=== PATIENT | male | born 1950 | race Caucasian/White ===

== ENCOUNTER → 2023-02-10 15:49 | Outpatient (CLI) | payer MEDICARE, SELFPAY ==
--- NOTE | ~2023-02-10 | XR_ITS ---
XR lumbar spine min 4V DATE: 02/10/2023 16:36 INDICATION: Low back and bilateral knee pain. No injury. TECHNIQUE: AP, lateral, coned lateral lumbosacral and bilateral oblique views COMPARISON: None FINDINGS: The included lower thoracic and lumbar pedicles are intact. No fracture or bone destruction is evident. Degenerative spurring in the lower thoracic spine. There is slight retrolisthesis at L3-4, likely due to mild degenerative disc disease. There is degenerative change at the apophyseal joints, most severely the right at L4-5 and L5-S1. The re is associated grade 1 anterolisthesis at L4-5. There is severe degenerative disc disease at L5-S1, moderate degenerative disc disease at L4-5. No spondylolysis. The sacroiliac joints are intact. IMPRESSION: Degenerative changes of the lower thoracic and lumbar spine Reviewed, dictated and finalized at location B.
--- NOTE | ~2023-02-10 | XR_ITS ---
XR knee LT min 4V DATE: 02/10/2023 16:36 INDICATION: Bilateral knee pain and low back pain. No injury. TECHNIQUE: [place] and standing AP, PA and lateral views COMPARISON: None FINDINGS: There is patellar enthesopathy at quadriceps tendon insertion site. Mild periarticular spurring at the patellofemoral and lateral compartments. There is severe loss of medial compartment joint space with [id number]. No fracture or dislocation or significant joint effusion is evident. No radiopaque intra-articular lo ose body or chondrocalcinosis is detected. No periosteal reaction or bone destruction. 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 IMPRESSION: Tricompartment osteoarthritis, particularly severe at the medial co mpartment
--- NOTE | ~2023-02-10 | XR_ITS ---
XR knee RT min 4V DATE: 02/10/2023 16:36 INDICATION: Bilateral knee pain, low back pain. No injury. TECHNIQUE: [place] and standing AP, PA and lateral views COMPARISON: None FINDINGS: There is patellar enthesopathy at the quadriceps and patellar tendon insertion sites. There is moderate periarticular spurring at the patellofemoral joint. There is moderately severe loss of joint space height at the medial compartment. There is mild periar ticular spurring at the medial and lateral compartments. No fracture or dislocation or joint effusion, radiopaque intra-articular loose body or chondrocalcino sis is noted. No periosteal reaction or bone destruction. IMPRESSION: Tricompartment osteoarthritis, most severe at the medial compartment Reviewed, dictated and finalized at location B. IMPRESSION: Tricompartment osteoarthritis, most severe at the medial compartmen t
== END ==
PROVIDERS: PCP Family Medicine; Visit Provider Family Medicine
DX: M17.0 Bilateral primary osteoarthritis of knee (principal); M51.35 Other intervertebral disc degeneration, thoracolumbar region
CPT/HCPCS: 72110; 73564

== ENCOUNTER 2024-02-09 08:24 | Outpatient (CLI) | payer MEDICARE, SELFPAY ==
[2024-02-09 13:31] LABS: Hematocrit 44.2 % (42.0-52.0); Hemoglobin 14.8 g/dL (14.0-18.0); Mean Corpuscular HGB Conc 33.5 g/dl (32-36); Mean Corpuscular Hemoglobin 32.5 pg (26-34); Mean Corpuscular Volume 97.1 fl (80-100); Mean Platelet Volume 9.8 fl (7.4-10.4); Platelet Count Result 222 k/mm3 (150-375); Red Blood Count 4.55 M/mm3 (4.6-6.20); Red Cell Distribution Width 12.6 % (11.5-14.5); White Blood Count 5.5 K/mm3 (4.5-10.0)
[2024-02-09 13:37] LABS: Alanine Aminotransferase 21 U/L (6-50); Alkaline Phosphatase 92 U/L (38-126); Anion Gap 8 mmol/L (4-12); Aspartate Amino Transferase 38 U/L (17-59); Bilirubin,Total 0.4 mg/dL (0.2-1.3); Blood Urea Nitrogen 21 mg/dL (9-20); Carbon Dioxide 24 mmol/L (22-30); Chloride 105 mmol/L (98-107); Cholesterol 133 mg/dL (0-200); Estimated Glomerular Filt Rate 50; Glucose 96 mg/dL (65-110); HDL Direct 39 mg/dL; Potassium 3.9 mmol/L (3.4-5.0); Sodium 137 mmol/L (137-145); Triglycerides 80 mg/dL (<150)
[2024-02-09 13:49] LABS: LDL Cholesterol Direct 62 mg/dL
[2024-02-09 14:24] LABS: Hemoglobin A1C 5.5 % (<5.7)
== END 2024-02-09 08:25 | disposition home or self-care (01) ==
PROVIDERS: PCP Family Medicine; Visit Provider Family Medicine
DX: I12.9 Hypertensive chronic kidney disease with stage 1 through stage 4 chronic kidney disease, or unspecified chronic kidney disease (principal); N18.9 Chronic kidney disease, unspecified; E66.9 Obesity, unspecified; R73.03 Prediabetes; E78.2 Mixed hyperlipidemia
CPT/HCPCS: 36415; 80053; 80061; 83036; 84443; 85027

== ENCOUNTER 2024-11-15 08:28 | Outpatient (CLI) | payer MEDICARE, SELFPAY ==
--- OUTSIDE RECORDS SUMMARY | 2024-11-15 08:44 | XMS_ITS | Clinical Summary ---
Author Organization [facility] Office Center Address [address] [place] [address] Care Team Providers Care Drug Room Clerk Name Role Phone Angel Molina MD Unavailable [phone] Tamara Severino DO Primary Care Provider [phone] Allergies No known active allergies Medications citalopram (CeleXA) 10 mg tablet Take 1 tablet (10 mg total) by mouth daily 9 Active traZODone (DESYREL) 50 mg tablet Take 1 tablet (50 mg total) by mouth daily 9 Active atorvastatin (LIPITOR) 10 mg tablet Take 1 tablet (10 mg total) by mouth daily 9 Active losartan (COZAAR) 100 mg tablet TAKE 1 TABLET BY MOUTH EVERY DAY 90 tablet 2 2 Active carvediloL (COREG) 12.5 mg tablet TAKE ONE TABLET BY MOUTH TWICE A DAY WITH MEALS 180 tablet 1 2 Active NIFEdipine (NIFEdipine CC) 90 mg 24 hr tablet TAKE 1 TABLET BY MOUTH DAILY 90 tablet 2 5 Active doxazosin (CARDURA) 2 mg tablet TAKE 1 TABLET BY MOUTH EVERY DAY NIGHTLY 90 tablet 1 5 Active doxazosin (CARDURA) 2 mg tablet TAKE 1 TABLET BY MOUTH EVERY DAY NIGHTLY 90 tablet 1 4 10/23/19 25 Discontinued Active Problems Problem Noted Date Diagnosed Date Primary hypertension 09/09/2022 Mixed hyperlipidemia 08/17/2021 Abnormal EKG 11/01/2015 Hypertension 06/09/2015 Resolved Problems Problem Noted Date Diagnosed Date Resolved Date Dyslipidemia 11/01/2015 08/17/2021 Surgical History Surgery Date Site/Laterality Comments TOTAL SHOULDER REPLACEMENT 04/13/2019 Left shoulder Medical History Medical History Date Comments HTN (hypertension) Dyslipidemia Abnormal EKG Obesity Hyperlipidemia Family History Medical History Relation Name Comments Hyperlipidemia Mother Hypertension Mother Relation Name Status Comments Mother Alive Social History Tobacco Use Types Packs/Day Years Used Date Smoking Tobacco: Never Smokeless Tobacco: Never Tobacco Cessation:Counseling Given: Not Answered Sex and Gender Information Value Date Recorded Sex Assigned at Not on file Legal Sex Male 8:54 PM FOLDER TIER Gender Identity Not on file Sexual Orientation Not on file Obstetrics History Last Filed Vital Signs Vital Sign Reading Time Taken Comments Blood Pressure 118/62 06/23/2024 12:09 PM FOLDER TIER Pulse 58 06/23/2024 12:09 PM FOLDER TIER Temperature 36.3 C (97.3 F) 08/17/2021 1:46 PM CDT Respiratory Rate - - Oxygen Saturation 94% 06/23/2024 12:09 PM FOLDER TIER Inhaled Oxygen Concentration - - Weight 89.4 kg (197 lb) 06/23/2024 12:09 PM FOLDER TIER Height 162.6 cm (5' 4.02) 08/25/2023 4:58 PM CD T Body Mass Index 33.79 08/25/2023 4:58 PM CDT Plan of Treatment Health Maintenance Due Date Last Done Comments Colon Cancer Screening-Colonoscopy 1950 Depression Screening 1950 Fall Risk Assessment 1950 Hepatitis C Screening 1950 DTaP/Tdap/Td Vaccine (1 - Tdap) 12/21/1963 Hepatitis B Screening 1970 Zoster Vaccine (1 of 2) 2002 Well Visit 65+ 2017 Pneumococcal vaccine 65+ (2 of 2 - PPSV23) 09/28/2020 08/03/2020 Influenza Vaccine (Season Ended) 2025 Prostate Cancer Screening-PSA Discontinued 02/21/2022 Procedures Procedure Name Priority Date/Time Associated Diagnosis Comments PSA SCREEN Routine 02/21/2022 12:00 AM CDT from Last 3 Months or Most Recently Relevant to Health Maintenance Results * PSA screen (02/21/2022 12:00 AM CDT) PSA 2.6 0.0 - 4.0 ng/mL [facility] - 01 Comment: Steve ECLIA methodology. According to the [employer] [employer], Serum PSA should decrease and remain at undetectable levels after radical prostatectomy. The AUA defines biochemical recurrence as an initial PSA value 0.2 ng/mL or greater followed by a subsequent confirmatory PSA value 0.2 ng/mL or greater. Values obtained with different assay methods or kits cannot be used interchangeably. Results cannot be interpreted as absolute evidence of the presence or absence of malignant disease. 02/21/2022 02/21/2022 Narrative [facility] - 02/22/2022 4:10 PM CDT Performed at: [address] [id number] Tower Truck Driver: Scooter Ibanez PhD, Phone: [phone] Angel Molina MD LAB BLOOD ORDERABLES Final Result [facility] - 01 from Last 3 Months or Most Recently Relevant to Health Maintenance Insurance MEDICARE MEDICARE [facility] MEDICARE SUPPLEMENT Care Teams Drug Room Clerk Relationship Specialty Start Date End Date Tamara Severino DO [address] [place] [address] [address] PCP - General Family Medicine 02/14/20 Angel Molina MD [address] [place] [address] [address] Consulting Physician Cardiology 01/10/20
--- OUTSIDE RECORDS SUMMARY | 2024-11-15 08:44 | XMS_ITS | Clinical Summary ---
Author Organization [facility] Address [facility] [place] [address] Care Team Providers Care Color Control Operator Name Role Phone Jesse Lopez MD, Ortiz Unavailable [phone] Tamara Severino DO Primary Care Provider [phone] Allergies No known active allergies Medications trazodone 50 MG tablet Take 1 tablet (50 mg total) by mouth nightly at bedtime. 9 Active NIFEdipine ER 90 MG 24 hr tablet Take 1 tablet (90 mg total) by mouth nightly. 3 9 Active losartan 100 MG tablet Take 1 tablet (100 mg total) by mouth daily. 9 Active citalopram 10 MG tablet Take 1 tablet (10 mg total) by mouth nightly. 9 Active carvedilol 12.5 MG tablet Take 0.5 tablets (6.25 mg total) by mouth 2 (two) times daily. 9 Active atorvastatin 10 MG tablet 1 tablet (10 mg total) nightly at bedtime. 9 Active terbinafine 1 % cream Apply 1 Application topically as needed. 1 9 Active nystatin (MYCOSTATIN) powder 2 Active doxazosin (CARDURA) 2 MG tablet TAKE 1 TABLET BY MOUTH EVERY DAY NIGHTLY 2 Active traMADol (ULTRAM) 50 MG tabletIndication s:Acute Pain < 7 Day Supply Take 1 tablet (50 mg total) by mouth every 6 (six) hours as needed for Pain. Indications: Acute Pain < 7 Day Supply 20 tablet 3 Active Additional Information Patient not taking.Reported on 09/14/2024 traMADol (ULTRAM) 50 MG tabletIndication s:Acute Pain < 7 Day Supply Take 1 tablet (50 mg total) by mouth every 6 (six) hours as needed for Pain. Indications: Acute Pain < 7 Day Supply 20 tablet 3 Active Additional Information Patient not taking.Reported on 09/14/2024 ibuprofen (MOTRIN) 800 MG tabletIndication s:Pain of left shoulder after shoulder replacement TAKE 1 TABLET BY MOUTH EVERY 8 HOURS NEEDED FOR PAIN 90 tablet 4 Active Active Problems Problem Noted Date Diagnosed Date Pain of left shoulder after shoulder replacement 02/19/2024 Mixed hyperlipidemia 08/17/2021 Positive colorectal cancer screening using Colog uard test 09/06/2020 Overview (09/06/2020): Added automatically from request for surgery [id number] Primary osteoarthritis of right shoulder 020 S/P shoulder replacement, left 04/14/2019 Osteoarthritis of left shoulder 04/14/2019 Osteoarthritis of left acromioclavicular joint 1 05/25/2018 Impingement syndrome of left shoulder 03/25/2019 Asthma (HHS/HCC) 11/04/2016 H/O elbow surgery 11/07/2015 Abnormal EKG 11/01/2015 Dyslipidemia 11/01/2015 Primary osteoarthritis of left shoulder 07/04/19 16 Shoulder pain 06/26/2015 Hypertension 06/09/2015 Anxiety 06/09/2015 Resolved Problems Problem Noted Date Diagnosed Date Resolved Date Encounter for preventive health examination 06/09/2015 01/21/2020 Encounters Date Type Department Care Team Description 09/14/2024 3:40 PM CDT Office Visit [facility] [address] [place] [address] Donald Hill MD Follow Up (Right shoulder) 09/14/2024 Scan HEALTH INFO SRVCS Scanned, Doc [facility] 09/14/2024 Travel 09/07/2024 3:40 PM CDT Office Visit [facility] [address] [place] [address] Donald Hill MD Follow Up (Right shoulder) 09/07/2024 Scan MG HEALTH INFO SRVCS Scanned, Doc [facility] 09/07/2024 Travel 08/31/2024 4:00 PM CDT Office Visit [facility] [address] [place] [address] Donald Hill MD Follow Up (Right shoulder) 08/31/2024 Scan MG HEALTH INFO SRVCS Scanned, Doc [facility] 08/31/2024 Travel 08/25/2024 Orders Only [facility] [address] [place] [address] Donald Hill MD from Last 3 Months Immunizations Immunization Administration Dates Next Due Pneumococcal (Prevnar 13) 08/03/2020 Family History Medical History Relation Comments Alcohol Abuse Brother 1 Alcohol Abuse Brother 2 Heart Disease Father Hypertension Mother Relation Status Comments Brother 1 (Age 65) alcoholism Brother 2 (Age 68) alcoholism Father (Age 90) Mother Alive Sister 1 Alive Sister 2 Alive Son 1 Alive Son 2 Alive Social History Tobacco Use Types Packs/Day Years Used Date Smoking Tobacco: Never Passive Smoke Exposure: Never Smokeless Tobacco: Never Tobacco Cessation:Counseling Given: No Comments:na Alcohol Use Standard Drinks/Week Comments No 0 (1 standard drink = 0.6 oz pur e alcohol) AUDIT-C Answer Date Recorded Frequency of Alcohol Consumption Never 10/15/2018 Average Number of Drinks Not on file 019 Frequency of Binge Drinking Not on file 10/2018 PHQ-2 Answer Date Recorded Patient Health Questionnaire-2 Score 2 08/31/2024 Sex and Gender Information Value Date Recorded Sex Assigned at Not on file Legal Sex Male 10:56 AM CDT Gender Identity Not on file Sexual Orientation Not on file Last Filed Vital Signs Vital Sign Reading Time Taken Comments Blood Pressure 126/71 09/14/2024 3:34 PM CDT Pulse 61 09/14/2024 3:34 PM CDT Temperature 37.3 C (99.1 F) 09/14/2024 3:34 PM CDT Respiratory Rate 13 06/25/2022 9:35 AM [employer]TER Oxygen Saturation 98% 08/12/2023 3:47 PM CDT Inhaled Oxygen Concentration - - Weight 89.1 kg (196 lb 6.4 oz) 09/14/2024 3:34 P M CDT Height 167.6 cm (5' 6) 08/05/2023 3:35 PM CDT Body Mass Index 31.7 08/05/2023 3:35 PM CDT Plan of Treatment Health Maintenance Due Date Last Done Comments Hepatitis C 1970 DTaP, Tdap and Td Vaccines ( 1 - Tdap) 12/21/1971 Zoster Vaccines (1 of 2) 2002 RSV Immunization or 60+ Years (1 - Risk 60-74 years 1-dose series) 2012 Annual Medicare Wellness Visit 2017 Pneumococcal Vaccine: 50+ Years (2 of 2 - PPSV23) 09/28/2020 08/03/2020 COVID-19 Vaccine (3 - 2023-2 5 season) 2024 07/11/2020, 06/13/2020 Colorectal Cancer Screening Colonoscopy (10 Years) 09/15/2030 09/15/2020 Colorectal Cancer Screening FIT-DNA (3 Years) Discontinued 08/14/2020 PHQ-2 (Physician [place]) Completed 08/31/2024 Meningococcal B Vaccine Aged Out No l onger eligible based on patient's age to complete this topic Meningococcal Vaccine Aged Out No zoya amy eligible based on patient's age to complete this topic RSV Immunizations Under 20 Months Aged Out No longer eligible based on patient's age to complete this topic Medical Devices Implanted Type Area Wild Life Manager Device Identifier Shelf Expiration Date Model / Serial / Lot Cement Bone Tobramycin Simplex - [id number] Implanted:Qty : 1 on 04/14/2019 by Donald Hill MD at [facility] Cement Implant Left: Shoulder [employer] 02/13/2020 [id number] 01 / / [id number] Cement Full Dose - [id number] Implanted:Qty : [facility] Implant Left: Shoulder [employer] 02/08/2021 6191-1-0 01 / / [id number] Fibertape Tendon Compression Bridge Kit Implanted:Qty : 1 on 04/14/2019 by Donald Hill MD at [facility] Shoulder Components Left: Shoulder [employer] [id number] 09/09/2023 [id number] / / [id number] Aequalis Perform Keeled Glenoid Implanted:Qty : 1 on 04/14/2019 by Donald Hill MD at [facility] Shoulder Components Left: Shoulder [employer] 01/22/2024 [id number] / [id number] / Flex Shoulder System Implanted:Qty : 1 on 04/14/2019 by Donald Hill MD at [facility] Shoulder Components Left: Shoulder [employer] [id number] 02/17/2023 [id number] / / [id number] Aequalis Ascend Flexs Tandard Ptc Humeral Stem Implanted:Qty : 1 on 04/14/2019 by Donald Hill MD at [facility] Shoulder Components Left: Shoulder [employer] [id number] 09/11/2022 [id number] / / [id number] Procedures Procedure Name Priority Date/Time Associated Diagnosis Comments OXR RT SHOULDER 3V Routine 08/31/2024 3: 53 PM CDT Primary osteoarthritis of right shoulder COLOGUARD (SCAN ORDER) Routine 08/14/2020 from Last 3 Months or Most Recently Relevant to Health Maintenance Results * OXR RT SHOULDER 3V (08/31/2024 3:53 PM CDT) Anatomical Region Laterality Modality Radiographic Bridget ging Narrative 08/31/2024 4:27 PM CDT PROCEDURE: OXR RT SHOULDER 3V VIEWS: 3 DATE: 08/31/24 COMPARISONS: None CLINICAL INDICATION: FINDINGS: Severe glenohumeral osteoarthritis, type I acromion, moderate acromioclavicular joint osteoarthritis. No acute findings. IMPRESSION: Severe shoulder arthritis. us Donald Hill MD GENERAL IMAGING Final Result * COLOGUARD (SCAN) (08/14/2020) COLOGUARD POSITIVE [facility] Stool specimen (specimen) 08/14/2020 us Documents Scanned SCANNING Final Result [facility] from Last 3 Months or Most Recently Relevant to Health Maintenance Insurance MEDICARE [facility] Advance Directives * Full Code (Latest Code Status on File) Date Activated Date Inactivated Comments 04/14/2019 1:13 PM 04/15/2019 12:36 PM Care Teams Color Control Operator Relationship Specialty Start Date End Date Tamara Severino DO [address] [place] [address] PCP - General FAMILY PRACTICE 01/04/20 Angel Molina MD [address] [place] [address] INTERNAL MEDICINE 03/25/19
--- OUTSIDE RECORDS SUMMARY | 2024-11-15 08:44 | XMS_ITS | Encounter Summary ---
Author Organization [facility] System Address [facility] [place] [address] Care Team Providers Care Truck Engine Assembler Name Role Phone Jesse Lopez MD, Ortiz Unavailable [phone] Tamara Severino DO Primary Care Provider [phone] Encounter Details Date Type Department Care Team (Late st Contact Info) Description 09/08/2020 Prep for Procedure [facility] [address] [place], [place] [id number] Song Herrera MD [address] [address] Social History Tobacco Use Types Packs/Day Years Used Date Smoking Tobacco: Never Smokeless Tobacco: Never Alcohol Use Standard Drinks/Week Comments No 0 (1 standard drink = 0.6 oz pur e alcohol) AUDIT-C Answer Date Recorded Frequency of Alcohol Consumption Never 10/15/2018 Average Number of Drinks Not on file 019 Frequency of Binge Drinking Not on file 10/2018 Sex and Gender Information Value Date Recorded Sex Assigned at Not on file Legal Sex Male 10:56 AM CDT Gender Identity Not on file Sexual Orientation Not on file documented as of this encounter Functional Status * RETIRED Are you deaf or do you have serious difficulty hearing Answer Date of Assessment Author Status No 04/14/2019 1:05 PM TERRAZZO LAYER Activ e * RETIRED Are you blind or do you have serious difficulty seeing, even when wearing glasses? Answer Date of Assessment Author Status No 04/14/2019 1:05 PM TERRAZZO LAYER Activ e * Do you have serious difficulty walking or climbing stairs? Answer Date of Assessment Author Status No 04/14/2019 1:05 PM Selin Gomez RN Active * Do you have difficulty dressing or bathing? Answer Date of Assessment Author Status No 04/14/2019 1:05 PM Selin Gomez RN Active * Because of a physical, mental, or emotional condition, do you have difficulty doing errands alone such as visiting a doctor's office or shopping? Answer Date of Assessment Author Status No 04/14/2019 1:05 PM Selin Gomez RN Active documented as of this encounter Mental Status * Because of a physical, mental, or emotional condition, do you have serious difficulty concentrating, remembering, or making decisions? Answer Entry Date Author Status No 04/14/2019 1:05 PM Selin Gomez RN Active documented in this encounter Plan of Treatment Not on file documented as of this encounter Results * ECG 12-Lead (09/12/2020 8:02 AM CDT) 09/12/2020 8:02 AM CDT Narrative [facility] RAD - 09/12/2020 7:32 PM CDT [facility] Test Date: 2020-09-12 Pat Name: ALEC DELUNA Department: Room: Gender: Male Tailings Worker: : 1950 Requested By: SONG HERRERA Order Number: [id number] Reading MD: Ben Farr Measurements Intervals [place] Rate: 50 P: 8 [place]: 154 QRS: -16 QRSD: 133 T: -20 QT: 452 QTc: 416 Interpretive Statements SINUS BRADYCARDIA INTRAVENTRICULAR CONDUCTION DELAY [130+ ms QRS DURATION] MODERATE VOLTAGE CRITERIA FOR LVH, CONSIDER NORMAL VARIANT [MEETS CRITERIA IN ONE OF: R(aVL), S(V1), R(V5), R(V5/V6)+S(V1)] POSSIBLE LATERAL MYOCARDIAL INFARCTION , OF INDETERMINATE AGE [30 ms Q WAVE IN I/aVL/V5/V6] Compared to ECG 03/25/2019 12:06:58 Intraventricular conduction delay now present T-wave abnormality no longer present Possible ischemia no longer present Myocardial infarct finding still present Procedure Note Ben Farr MD - 09/12/2020 [facility] Test Date: 2020-09-12 Pat Name: ALEC DELUNA Department: Room: Gender: Male Tailings Worker: : 1950 Requested By: SONG HERRERA Order Number: [id number] Reading MD: Ben Farr Measurements Intervals [place] Rate: 50 P: 8 [place]: 154 QRS: -16 QRSD: 133 T: -20 QT: 452 QTc: 416 Interpretive Statements SINUS BRADYCARDIA INTRAVENTRICULAR CONDUCTION DELAY [130+ ms QRS DURATION] MODERATE VOLTAGE CRITERIA FOR LVH, CONSIDER NORMAL VARIANT [MEETSCRITERIA IN ONE OF: R(aVL), S(V1), R(V5), R(V5/V6)+S(V1)] POSSIBLE LATERAL MYOCARDIAL INFARCTION , OF INDETERMINATE AGE [30 ms QWAVE IN I/aVL/V5/V6] Compared to ECG 03/25/2019 12:06:58 Intraventricular conduction delay now present T-wave abnormality no longer present Possible ischemia no longer present Myocardial infarct finding still present us Song Herrera MD ECG ORDERABLES Final Result [facility] RAD * PRE-SURGICAL/PRE-PROCEDURE CORONAVIRUS (COVID 19) (09/12/2020 7:48 AM CDT) CORONAVIRUS SARS COV 2 PCR (RESP) NOT DETECTED NOT DETECTED 09/14/2020 5:41 PM CDT [facility] Comment: A Not Detected (negative) test result for this test means that SARS- CoV-2 RNA was not present in the specimen above the limit of detection. A negative result does not rule out the possibility of COVID-19 and should not be used as the sole basis for treatment or patient management decisions. If COVID-19 is still suspected, based on exposure history together with other clinical findings, re-testing should be considered in consultation with public health authorities. Laboratory test results should always be considered in the context of clinical observations and epidemiological data in making a final diagnosis and patient management decisions. Please review the Fact Sheets and FDA authorized labeling available for health care providers and patients using the following websites: https://www.[employer].BugBuster/home/Covid-19/HCP/QuestIVD/fact- sheet.html https://www.[employer].BugBuster/home/Covid-19/Patients/ QuestIVD/fact-sheet.html This test has been authorized by the FDA under an Emergency Use Authorization (EUA) for use by authorized laboratories. Due to the current public health emergency, [facility] is receiving a high volume of samples from a wide variety of swabs and media for COVID-19 testing. In order to serve patients during this public health crisis, samples from appropriate clinical sources are being tested. Negative test results derived from specimens received in non-commercially manufactured viral collection and transport media, or in media and sample collection kits not yet authorized by FDA for COVID-19 testing should be cautiously evaluated and the patient potentially subjected to extra precautions such as additional clinical monitoring, including collection of an additional specimen. Methodology: Nucleic Acid Amplification Test (NAAT) includes RT-PCR or TMA Additional information about COVID-19 can be found at the [facility] website: www.[employer].BugBuster/Covid19. Test performed at [facility] [place] [address] [place] [id number] Director: ABAD SAMUELS DO,MPH FIRST TEST NO 09/12/2020 7:41 AM CDT [facility] EMPLOYED IN HEALTHCARE NO 09/12/2020 7:41 AM CDT [facility] SYMPTOMATIC DEFINED BY CDC NO 09/12/2020 7:41 AM CDT [facility] DATE OF SYMPTOM ONSET UNKNOWN 09/12/2020 8:01 AM CDT [facility] HOSPITALIZATION STATUS NO 09/12/2020 7:41 AM CDT [facility] PATIENT IN ICU NO 09/12/2020 7:41 AM CDT [facility] RESIDENT OF CONGREGATE CARE NO 09/12/2020 7:41 AM CDT [facility] UNKNOWN 09/12/2020 8:01 AM CDT [facility] PATIENT'S RACE WHITE OR 09/12/2020 7:41 AM CDT [facility] ETHNICITY NONHISPANIC 09/12/2020 7:41 AM CDT [facility] SOURCE (QST) NASOPHARYNGEAL SWAB 09/12/2020 7:41 AM CDT [facility] NASOPHARYNGEAL SWAB / Unknown 09/12/2020 7:48 AM CDT us Song Herrera MD MICROBIOLOGY - GENERAL ORDERABLE S Final Result [facility] [address] [place] [address], [facility] [address] [place] [address], documented in this encounter Visit Diagnoses Diagnosis Preop testing- Primary Preoperative examination, unspecified Preop cardiovascular exam Pre-operative cardiovascular examination Preop cardiovascular exam Pre-operative cardiovascular examination documented in this encounter Additional Health Concerns Infection Onset Date Last Indicated Resolved Time COVID-19 Rule Out 09/12/2020 09/12/2020 09/14/2020 5:41 PM CDT documented as of this encounter Care Teams Truck Engine Assembler Relationship Specialty Start Date End Date Tamara Severino DO [address] [place] [address] PCP - General FAMILY PRACTICE 01/04/20 Angel Molina MD [address] [place] [address] INTERNAL MEDICINE 03/25/19 documented as of this encounter
--- OUTSIDE RECORDS SUMMARY | 2024-11-15 08:44 | XMS_ITS | Encounter Summary ---
Author Organization [facility] Address [facility] [place] [address] Care Team Providers Care Otr Flatbed Company Truck Driver Name Role Phone Jesse Lopez MD, Ortiz Unavailable [phone] Tamara Severino DO Primary Care Provider [phone] Encounter Details Date Type Department Care Team (Late st Contact Info) Description 11/06/2022 [place] Message Enc [facility] [address] [place], [place] [address] [facility] Provider Air Quality Message Social History Tobacco Use Types Packs/Day Years Used Date Smoking Tobacco: Never Smokeless Tobacco: Never Comments:na Alcohol Use Standard Drinks/Week Comments No 0 (1 standard drink = 0.6 oz pur e alcohol) AUDIT-C Answer Date Recorded Frequency of Alcohol Consumption Never 10/15/2018 Average Number of Drinks Not on file 019 Frequency of Binge Drinking Not on file 10/2018 PHQ-2 Answer Date Recorded Patient Health Questionnaire-2 Score 0 05/27/2022 Sex and Gender Information Value Date Recorded Sex Assigned at Not on file Legal Sex Male 10:56 AM CDT Gender Identity Not on file Sexual Orientation Not on file documented as of this encounter Functional Status * RETIRED Are you deaf or do you have serious difficulty hearing Answer Date of Assessment Author Status No 04/14/2019 1:05 PM VENDING SERVICE TECHNICIAN Activ e * RETIRED Are you blind or do you have serious difficulty seeing, even when wearing glasses? Answer Date of Assessment Author Status No 04/14/2019 1:05 PM VENDING SERVICE TECHNICIAN Activ e * Do you have serious [...] on file documented as of this encounter Visit Diagnoses Not on filedocumented in this encounter Care Teams Otr Flatbed Company Truck Driver Relationship Specialty Start Date End Date Tamara Severino DO [address] [place] [address] PCP - General FAMILY PRACTICE 01/04/20 Angel Molina MD [address] [facility] [place] [address] INTERNAL MEDICINE 03/25/19 documented as of this encounter
--- OUTSIDE RECORDS SUMMARY | 2024-11-15 08:44 | XMS_ITS | Referral Summary ---
Author Organization [facility] Address [address] [place] [address] Care Team Providers Care Catering Server Name Role Phone Angel Molina MD Unavailable [phone] Tamara Severino DO Primary Care Provider [phone] Allergies No known active allergies Medications citalopram [...] Diagnosed Date Resolved Date Dyslipidemia 11/01/2015 08/17/2021 Social History Tobacco Use Types Packs/Day Years Used Date Smoking Tobacco: Never Smokeless Tobacco: Never Tobacco Cessation:Counseling Given: Not Answered Sex and Gender Information Value Date Recorded Sex Assigned at Not on file Legal Sex Male 8:54 PM EDGE STAINER MACHINE Gender Identity Not on file Sexual Orientation Not on file Last Filed Vital Signs Vital Sign Reading Time Taken Comments Blood Pressure 118/62 06/23/2024 12:09 PM EDGE STAINER MACHINE Pulse 58 06/23/2024 12:09 PM EDGE STAINER MACHINE Temperature 36.3 C (97.3 F) 08/17/2021 1:46 PM CDT Respiratory Rate - - Oxygen Saturation 94% 06/23/2024 12:09 PM EDGE STAINER MACHINE Inhaled Oxygen Concentration - - Weight 89.4 kg (197 lb) 06/23/2024 12:09 PM EDGE STAINER MACHINE Height 162.6 cm (5' 4.02) 08/25/2023 4:58 PM CD T Body Mass Index 33.79 08/25/2023 4:58 PM CDT Plan of Treatment Not on file Procedures Procedure Name Priority Date/Time Associated Diagnosis Comments PSA SCREEN Routine 02/21/2022 12:00 AM CDT from Last 3 Months or Most Recently Relevant to Health Maintenance Results * PSA screen (02/21/2022 12:00 AM CDT) [facility] PSA 2.6 0.0 - 4.0 ng/mL [facility] - 01 Comment: Steve ECLIA methodology. According to the [place] [employer], Serum PSA should decrease and [...] - 02/22/2022 4:10 PM CDT Performed at: [address] [place] [id number] Paper Deliverer: Scooter Ibanez PhD, Phone: [phone] Angel Molina MD LAB BLOOD ORDERABLES Final Result [facility] - 01 from Last 3 Months or Most Recently Relevant to Health Maintenance Insurance MEDICARE MEDICARE [facility] MEDICARE SUPPLEMENT Care Teams Catering Server Relationship Specialty Start Date End Date [facility] cent[facility]alphTamara DO [address] [facility] [address] [place] [address] PCP - General Family Medicine 02/14/20 Angel Molina MD [address] [facility] [place] [address] Consulting Physician Cardiology 01/10/20
--- OUTSIDE RECORDS SUMMARY | 2024-11-15 08:44 | XMS_ITS | Encounter Summary ---
Author Organization [facility] Care Team Providers Care Fiber Product Cutting Machine Operator Name Role Phone No, Physician Primary Care Provider [phone] Robel Anderson MD Primary Care Provider [phone] Angel Molina MD Unavailable [phone] Tamara Severino DO Primary Care Provider [phone] Encounter Details Date Type Department Care Team (Latest Contact Info) Description 06/14/2014 Orders Only [facility] CLINCON[facility] ProviderJudah MD [address] [place] [address] Social History Tobacco Use Types Packs/Day Years Used Date Smoking Tobacco: Never Assessed Sex and Gender Information Value Date Recorded Sex Assigned at Not on file Legal Sex Male 8:54 PM L TACKER Gender Identity Not on file Sexual Orientation Not on file documented as of this encounter Plan of Treatment Not on file documented as of this encounter Procedures Procedure Name Priority Date/Time Associated Diagnosis Comments SCAN - LABS 11/01/2015 12:00 AM CDT documented in this encounter Results * SCAN - LABS (11/01/2015 12:00 AM CDT) Narrative 11/01/2015 12:00 AM CDT Ordered by an unspecified provider. Historical Provider Final Res ult documented in this encounter Visit Diagnoses Not on filedocumented in this encounter Care Teams Fiber Product Cutting Machine Operator Relationship Specialty Start Date End Date No, Physician PCP - General 08/05/18 02/16/19 Robel Anderson MD [address] [place] [address] PCP - General Family Medicine 02/17/19 02/13/20 Tamara Severino DO [address] [facility] [address] [place] [address] [address] PCP - General Family Medicine 02/14/20 Angel Molina MD [address] [facility] [address] [place] [address] [address] Consulting Physician Cardiology 01/10/20 documented as of this encounter
--- OUTSIDE RECORDS SUMMARY | 2024-11-15 08:44 | XMS_ITS | Encounter Summary ---
Author Organization [facility] Facility Care Team Providers Care Tile Trimmer Name Role Phone No, Physician Primary Care Provider [phone] Robel Anderson MD Primary Care Provider [phone] Angel Molina MD Unavailable [phone] Tamara Severino DO Primary Care Provider [phone] Encounter Details Date Type Department Care Team (Latest Contact Info) Description 10/31/2015 Orders Only [facility] CLINCONV ProviderJudah MD [address] [place] [address] Social History Tobacco Use Types Packs/Day Years Used Date Smoking Tobacco: Never Assessed Sex and Gender Information Value Date Recorded Sex Assigned at Not on file Legal Sex Male 8:54 PM BIODIESEL PRODUCTION ASSOCIATE Gender Identity Not on file Sexual Orientation Not on file documented as of this encounter Plan of Treatment Not on file documented as of this encounter Procedures Procedure Name Priority Date/Time Associated Diagnosis Comments SCAN - LABS 11/01/2015 12:00 AM CDT CARDIOLOGY REPORT 11/01/2015 12: 00 AM CDT documented in this encounter Results * SCAN - LABS (11/01/2015 12:00 AM CDT) Narrative 11/01/2015 12:00 AM CDT Ordered by an unspecified provider. Historical Provider Final Res ult * CARDIOLOGY REPORT (11/01/2015 12:00 AM CDT) Anatomical Region Laterality Modality Other Narrative 11/01/2015 12:00 AM CDT Ordered by an unspecified provider. us Historical Provider [facility] Final Result documented in this encounter Visit Diagnoses Not on filedocumented in this encounter Care Teams Tile Trimmer Relationship Specialty Start Date End Date No, Physician PCP - General 08/05/18 02/16/19 Robel Anderson MD [address] [place] [address] PCP - General Family Medicine 02/17/19 02/13/20 Tamara Severino DO [address] [facility] [place] [address] PCP - General Family Medicine 02/14/20 Angel Molina MD [address] [facility] [place] [address] Consulting Physician Cardiology 01/10/20 documented as of this encounter
--- OUTSIDE RECORDS SUMMARY | 2024-11-15 08:44 | XMS_ITS | Encounter Summary ---
Author Organization [facility] Address [address] [place] [address] Care Team Providers Care Human Resources Mgr Name Role Phone Jesse Lopez MD, Ortiz Unavailable [phone] Tamara Severino DO Primary Care Provider [phone] Encounter Details Date Type Department Care Team (Late st Contact Info) Description 05/31/2022 Experenti Message [facility] Day [facility] [address] [place] [address] [facility] Provider letter Social History Tobacco Use Types Packs/Day Years [...] on file Sexual Orientation Not on file COVID-19 Exposure Response Date Recorded In the last 10 days, have yo u been in contact with someone who was confirmed or suspected to have Coronavirus/COVID-19? No / Unsure 05/27/2022 12:53 PM OCCUPATIONAL HEALTH NURSE documented as of this encounter Functional Status * RETIRED Are you deaf or do you have serious difficulty hearing Answer Date of Assessment Author Status No 04/14/2019 1:05 PM OCCUPATIONAL HEALTH NURSE Activ e * RETIRED Are you blind or do you have serious difficulty seeing, even when wearing glasses? Answer Date of Assessment Author Status No 04/14/2019 1:05 PM OCCUPATIONAL HEALTH NURSE Activ e * Do you have serious [...] on filedocumented in this encounter Care Teams Human Resources Mgr Relationship Specialty Start Date End Date Tamara Severino DO [address] [place] [address] PCP - General FAMILY PRACTICE 01/04/20 Angel Molina MD [address] [facility] [address] [address] INTERNAL MEDICINE 03/25/19 documented as of this encounter
--- OUTSIDE RECORDS SUMMARY | 2024-11-15 08:45 | XMS_ITS | Encounter Summary ---
Author Organization [facility] Facility Care Team Providers Care Engineering Drafter Name Role Phone No, Physician Primary Care Provider [phone] Robel Anderson MD Primary Care Provider [phone] Angel Molina MD Unavailable [phone] Tamara Severino DO Primary Care Provider [phone] Encounter Details Date Type Department Care Team (Latest Contact Info) Description 03/04/2017 Orders Only [facility] CLINCONV ProviderJudah MD [address] [place] [address] Social History Tobacco Use Types Packs/Day Years Used Date Smoking Tobacco: Never Assessed Sex and Gender Information Value Date Recorded Sex Assigned at Not on file Legal Sex Male 8:54 PM CAR RECORD CLERK Gender Identity Not on file Sexual Orientation Not on file documented as of this encounter Plan of Treatment Not on file documented as of this encounter Procedures Procedure Name Priority Date/Time Associated Diagnosis Comments SCAN - LABS 07/01/2017 12:00 AM CAR RECORD CLERK documented in this encounter Results * SCAN - LABS (07/01/2017 12:00 AM CAR RECORD CLERK) Narrative 07/01/2017 12:00 AM CAR RECORD CLERK Ordered by an unspecified provider. Historical Provider Final Res ult documented in this encounter Visit Diagnoses Not on filedocumented in this encounter Care Teams Engineering Drafter Relationship Specialty Start Date End Date No, Physician PCP - General 08/05/18 02/16/19 Robel Anderson MD [address] [place] [address] PCP - General Family Medicine 02/17/19 02/13/20 Tamara Severino DO [address] [facility] [place] [address] PCP - General Family Medicine 02/14/20 Angel Molina MD [address] [place] [address] Consulting Physician Cardiology 01/10/20 documented as of this encounter
--- OUTSIDE RECORDS SUMMARY | 2024-11-15 08:45 | XMS_ITS | Encounter Summary ---
Author Organization [facility] Facility Care Team Providers Care Psychometrist Name Role Phone No, Physician Primary Care Provider [phone] Robel Anderson MD Primary Care Provider [phone] Angel Molina MD Unavailable [phone] Tamara Severino DO Primary Care Provider [phone] Encounter Details Date Type Department Care Team (Latest Contact Info) Description 11/02/2015 Orders Only [facility] CLINCONV ProviderJudah MD [address] [place] [address] Social History Tobacco Use Types Packs/Day Years Used Date Smoking Tobacco: Never Assessed Sex and Gender Information Value Date Recorded Sex Assigned at Not on file Legal Sex Male 8:54 PM WAYBILL CLERK Gender Identity Not on file Sexual Orientation Not on file documented as of this encounter Plan of Treatment Not on file documented as of this encounter Procedures Procedure Name Priority Date/Time Associated Diagnosis Comments CARDIOLOGY REPORT 11/06/2015 12: 00 AM CDT CARDIOLOGY REPORT 11/03/2015 12: 00 AM CDT PROCEDURE - RESULT 11/02/2015 12 :00 AM CDT documented in this encounter Results * CARDIOLOGY REPORT (11/06/2015 12:00 AM CDT) Anatomical Region Laterality Modality Other Narrative 11/06/2015 12:00 AM CDT Ordered by an unspecified provider. Historical Provider [facility] PROCE DURES Final Result * CARDIOLOGY REPORT (11/03/2015 12:00 AM CDT) Anatomical Region Laterality Modality Other Narrative 11/03/2015 12:00 AM CDT Ordered by an unspecified provider. us Historical Provider [facility] PROCE FERMIN Final Result * PROCEDURE - RESULT (11/02/2015 12:00 AM CDT) Narrative 11/02/2015 12:00 AM CDT Ordered by an unspecified provider. us Historical Provider Final Res ult documented in this encounter Visit Diagnoses Not on filedocumented in this encounter Care Teams Psychometrist Relationship Specialty Start Date End Date No, Physician PCP - General 08/05/18 02/16/19 Robel Anderson MD [address] [place] [address] PCP - General Family Medicine 02/17/19 02/13/20 Tamara Severino DO [address] [facility] [address] [place] [address] PCP - General Family Medicine 02/14/20 Angel Molina MD [address] [facility] [address] [place] [address] Consulting Physician Cardiology 01/10/20 documented as of this encounter
--- OUTSIDE RECORDS SUMMARY | 2024-11-15 08:45 | XMS_ITS | Encounter Summary ---
Author Organization [facility] Facility Care Team Providers Care Cotton Roll Packer Name Role Phone No, Physician Primary Care Provider [phone] Robel Anderson MD Primary Care Provider [phone] Angel Molina MD Unavailable [phone] Tamara Severino DO Primary Care Provider [phone] Encounter Details Date Type Department Care Team (Latest Contact Info) Description 04/18/2016 Orders Only [facility] CLINCON[facility] ProviderJudah MD [address] [place] [id number] Social History Tobacco Use Types Packs/Day Years Used Date Smoking Tobacco: Never Assessed Sex and Gender Information Value Date Recorded Sex Assigned at Not on file Legal Sex Male 8:54 PM GOGGLES ASSEMBLER Gender Identity Not on file Sexual Orientation Not on file documented as of this encounter Plan of Treatment Not on file documented as of this encounter Procedures Procedure Name Priority Date/Time Associated Diagnosis Comments SCAN - LABS 04/18/2016 12:00 AM GOGGLES ASSEMBLER documented in this encounter Results * SCAN - LABS (04/18/2016 12:00 AM GOGGLES ASSEMBLER) Narrative 04/18/2016 12:00 AM GOGGLES ASSEMBLER Ordered by an unspecified provider. Historical Provider Final Res ult documented in this encounter Visit Diagnoses Not on filedocumented in this encounter Care Teams Cotton Roll Packer Relationship Specialty Start Date End Date No, Physician PCP - General 08/05/18 02/16/19 Robel Anderson MD [address] [place] [address] PCP - General Family Medicine 02/17/19 02/13/20 Tamara Severino DO [address] [place] [address] PCP - General Family Medicine 02/14/20 Angel Molina MD [address] [place] [address] Consulting Physician Cardiology 01/10/20 documented as of this encounter
--- OUTSIDE RECORDS SUMMARY | 2024-11-15 08:45 | XMS_ITS | Encounter Summary ---
Author Organization [facility] Facility Care Team Providers Care Conference Assistant Name Role Phone No, Physician Primary Care Provider [phone] Robel Anderson MD Primary Care Provider [phone] Angel Molina MD Unavailable [phone] Tamara Severino DO Primary Care Provider [phone] Encounter Details Date Type Department Care Team (Latest Contact Info) Description 03/24/2018 Orders Only [facility] CLINCON[facility] ProviderJudah MD [address] [place] [address] Social History Tobacco Use Types Packs/Day Years Used Date Smoking Tobacco: Never Assessed Sex and Gender Information Value Date Recorded Sex Assigned at Not on file Legal Sex Male 8:54 PM HYDRAULIC PUNCH PRESS OPERATOR Gender Identity Not on file Sexual Orientation Not on file documented as of this encounter Plan of Treatment Not on file documented as of this encounter Procedures Procedure Name Priority Date/Time Associated Diagnosis Comments SCAN - LABS 03/24/2018 12:00 AM HYDRAULIC PUNCH PRESS OPERATOR documented in this encounter Results * SCAN - LABS (03/24/2018 12:00 AM HYDRAULIC PUNCH PRESS OPERATOR) Narrative 03/24/2018 12:00 AM HYDRAULIC PUNCH PRESS OPERATOR Ordered by an unspecified provider. Historical Provider Final Res ult documented in this encounter Visit Diagnoses Not on filedocumented in this encounter Care Teams Conference Assistant Relationship Specialty Start Date End Date No, Physician PCP - General 08/05/18 02/16/19 Robel Anderson MD [address] [place] [address] PCP - General Family Medicine 02/17/19 02/13/20 Tamara Severino DO [address] [place] [address] PCP - General Family Medicine 02/14/20 Angel Molina MD [address] [place] [address] Consulting Physician Cardiology 01/10/20 documented as of this encounter
--- OUTSIDE RECORDS SUMMARY | 2024-11-15 08:45 | XMS_ITS | Encounter Summary ---
Author Organization [facility] Facility Care Team Providers Care Human Resources Executive Name Role Phone No, Physician Primary Care Provider [phone] Robel Anderson MD Primary Care Provider [phone] Angel Molina MD Unavailable [phone] Tamara Severino DO Primary Care Provider [phone] Encounter Details Date Type Department Care Team (Latest Contact Info) Description 11/01/2015 Orders Only [facility] CLINCONV ProviderJudah MD [address] [place] [address] Social History Tobacco Use Types Packs/Day Years Used Date Smoking Tobacco: Never Assessed Sex and Gender Information Value Date Recorded Sex Assigned at Not on file Legal Sex Male 8:54 PM VIDEOGAME TESTER Gender Identity Not on file Sexual Orientation Not on file documented as of this encounter Plan of Treatment Not on file documented as of this encounter Procedures Procedure Name Priority Date/Time Associated Diagnosis Comments PROCEDURE - RESULT 11/01/2015 12 :00 AM CDT documented in this encounter Results * PROCEDURE - RESULT (11/01/2015 12:00 AM CDT) Narrative 11/01/2015 12:00 AM CDT Ordered by an unspecified provider. Historical Provider Final Res ult documented in this encounter Visit Diagnoses Not on filedocumented in this encounter Care Teams Human Resources Executive Relationship Specialty Start Date End Date No, Physician PCP - General 08/05/18 02/16/19 Robel Anderson MD [address] [address] PCP - General Family Medicine 02/17/19 02/13/20 Tamara Severino DO [address] [facility] [address] [address] [place] [address] [address] PCP - General Family Medicine 02/14/20 Angel Molina MD [address] [facility] [place] [address] [address] Consulting Physician Cardiology 01/10/20 documented as of this encounter
--- OUTSIDE RECORDS SUMMARY | 2024-11-15 08:45 | XMS_ITS | Encounter Summary ---
Author Organization [facility] Facility Care Team Providers Care Cook Camp Name Role Phone No, Physician Primary Care Provider [phone] Robel Anderson MD Primary Care Provider [phone] Angel Molina MD Unavailable [phone] Tamara Severino DO Primary Care Provider [phone] Encounter Details Date Type Department Care Team (Latest Contact Info) Description 09/09/2017 Orders Only [facility] CLINCONV ProviderJudah MD [address] [place] [address] Social History Tobacco Use Types Packs/Day Years Used Date Smoking Tobacco: Never Assessed Sex and Gender Information Value Date Recorded Sex Assigned at Not on file Legal Sex Male 8:54 PM BOOMSWING OPERATOR Gender Identity Not on file Sexual Orientation Not on file documented as of this encounter Plan of Treatment Not on file documented as of this encounter Procedures Procedure Name Priority Date/Time Associated Diagnosis Comments SCAN - LABS 01/14/2018 12:00 AM CDT documented in this encounter Results * SCAN - LABS (01/14/2018 12:00 AM CDT) Narrative 01/14/2018 12:00 AM CDT Ordered by an unspecified provider. Historical Provider Final Res ult documented in this encounter Visit Diagnoses Not on filedocumented in this encounter Care Teams [place] Relationship Specialty Start Date End Date No, Physician PCP - General 08/05/18 02/16/19 Robel Anderson MD [address] [place] [address] PCP - General Family Medicine 02/17/19 02/13/20 Tamara Severino DO [address] [facility] [address] [place] [address] [address] PCP - General Family Medicine 02/14/20 Angel Molina MD [address] [facility] [address] [place] [address] [address] Consulting Physician Cardiology 01/10/20 documented as of this encounter
--- OUTSIDE RECORDS SUMMARY | 2024-11-15 08:45 | XMS_ITS | Encounter Summary ---
Author Organization [facility] Facility Care Team Providers Care Record Clerk Name Role Phone No, Physician Primary Care Provider [phone] Robel Anderson MD Primary Care Provider [phone] Angel Molina MD Unavailable [phone] Tamara Severino DO Primary Care Provider [phone] Encounter Details Date Type Department Care Team (Latest Contact Info) Description 12/26/2015 Orders Only [facility] CLINCONV ProviderJudah MD [address] [place] [address] Social History Tobacco Use Types Packs/Day Years Used Date Smoking Tobacco: Never Assessed Sex and Gender Information Value Date Recorded Sex Assigned at Not on file Legal Sex Male 8:54 PM COMMUNICABLE DISEASE SPECIALIST Gender Identity Not on file Sexual Orientation Not on file documented as of this encounter Plan of Treatment Not on file documented as of this encounter Procedures Procedure Name Priority Date/Time Associated Diagnosis Comments SCAN - LABS 12/27/2015 12:00 AM CDT documented in this encounter Results * SCAN - LABS (12/27/2015 12:00 AM CDT) Narrative 12/27/2015 12:00 AM CDT Ordered by an unspecified provider. Historical Provider Final Res ult documented in this encounter Visit Diagnoses Not on filedocumented in this encounter Care Teams Record Clerk Relationship Specialty Start Date End Date No, Physician PCP - General 08/05/18 02/16/19 Robel Anderson MD [address] [place] [address] PCP - General Family Medicine 02/17/19 02/13/20 Tamara Severino DO [address] [facility] [address] [place] [address] [address] PCP - General Family Medicine 02/14/20 Angel Molina MD [address] [facility] [address] [place] [address] [address] Consulting Physician Cardiology 01/10/20 documented as of this encounter
[2024-11-15 13:23] LABS: Alanine Aminotransferase 20 U/L (6-50); Albumin Level 3.9 g/dL (3.5-5.1); Alkaline Phosphatase 85 U/L (38-126); Anion Gap 5 mmol/L (4-12); Aspartate Amino Transferase 36 U/L (17-59); Bilirubin,Total 0.5 mg/dL (0.2-1.3); Blood Urea Nitrogen 19 mg/dL (9-20); Calcium 9.2 mg/dL (8.4-10.2); Carbon Dioxide 26 mmol/L (22-30); Chloride 107 mmol/L (98-107); Cholesterol 141 mg/dL (0-200); Estimated Glomerular Filt Rate 54; Glucose 96 mg/dL (65-110); HDL Direct 38 mg/dL; Potassium 4.1 mmol/L (3.4-5.0); Sodium 138 mmol/L (137-145); Total Protein 6.9 g/dL (6.3-8.2); Triglycerides 104 mg/dL (<150)
[2024-11-15 13:24] LABS: Hematocrit 43.8 % (42.0-52.0); Hemoglobin 14.7 g/dL (14.0-18.0); Mean Corpuscular HGB Conc 33.6 g/dl (32-36); Mean Corpuscular Hemoglobin 32.1 pg (26-34); Mean Corpuscular Volume 95.6 fl (80-100); Platelet Count Result 213 k/mm3 (150-375); Red Blood Count 4.58 M/mm3 (4.6-6.20); White Blood Count 5.4 K/mm3 (4.5-10.0)
[2024-11-15 13:54] LABS: Prostate Specific Antigen 2.7 ng/mL (< OR = 4.0); Thyroid Stimulating Hormone 1.860 uIU/mL (0.465-4.680)
[2024-11-15 17:07] LABS: Hemoglobin A1C 5.5 % (<5.7)
== END 2024-11-15 08:29 | disposition home or self-care (01) ==
PROVIDERS: PCP Family Medicine
DX: I12.9 Hypertensive chronic kidney disease with stage 1 through stage 4 chronic kidney disease, or unspecified chronic kidney disease (principal); N18.30 Chronic kidney disease, stage 3 unspecified; E78.2 Mixed hyperlipidemia; E66.9 Obesity, unspecified; R73.03 Prediabetes; Z12.5 Encounter for screening for malignant neoplasm of prostate
CPT/HCPCS: 36415; 80053; 80061; 83036; 84153; 84443; 85027; G0103